=== PATIENT | female | born 1990 | race African-American/Black ===

== ENCOUNTER 2023-05-20 19:09 | Emergency (ER) | payer BC, OTHER ==
[2023-05-20] MEDS ORDERED: Ibuprofen 200 MG TAB ONE (20:24)
== END 2023-05-20 20:32 | disposition home or self-care (01) ==
LOC: CSHERS 19:09
DX: S30.0XXA Contusion of lower back and pelvis, initial encounter (principal); W22.8XXA Striking against or struck by other objects, initial encounter
CPT/HCPCS: 99283